=== PATIENT | male | born 1985 | race Caucasian/White ===

== ENCOUNTER 2021-05-15 17:26 | Emergency (ER) | payer MEDICAID, SELFPAY ==
[~2021-05-15] VITALS: Ht 177.8 cm; Wt 101.8 kg
[2021-05-15 17:57] VITALS: BP 120/80
[2021-05-15] MEDS ORDERED: DEXAMETHASONE 4 MG/ML, 5ML ONE (18:19)
[2021-05-15] MEDS ORDERED: DEXAMETHASONE 4 MG/ML, 1ML PO ONE (18:30)
--- NOTE | 2021-05-15 19:11 | NUR ---
Patient given discharge instructions and they have confirmed that they understand the instructions. Patient ambulatory with steady gait. NAD, all questions answered appropriately, denies additional needs at this time. No personal belongings left in room after discharge.
== END 2021-05-15 19:12 | disposition home or self-care (01) ==
LOC: ED 19:05
DX: B34.9 Viral infection, unspecified (principal); Z20.822 Contact with and (suspected) exposure to COVID-19; J45.909 Unspecified asthma, uncomplicated
CPT/HCPCS: 71045; 99284; J1100; U0003; U0005